=== PATIENT | female | born 1990 | race Caucasian/White ===

== ENCOUNTER 2018-08-31 03:39 | Inpatient (IN) ==
[2018-08-31 05:44] LABS: Apearance,Urine CLEAR (Clear); Bilirubin,Urine Negative (Negative); Blood, Urine Negative (Negative); Glucose,Urine (UA) Negative (Negative); Ketones,Urine Negative (Negative); Nitrite,Urine Negative (Negative); Protein,Urine Negative; RBC,Urine 1 /HPF (0-4); Squamous Epithelial Cell,Urine Occasional /HPF (0-10); Urine Color Colorless (Yellow); Urine Specific Gravity 1.002 (1.001-1.035); Urine Urobilinogen < 2.0 EU/DL (0.2-1.0); WBC,Urine <1 /HPF (0-6)
[2018-08-31 05:57] LABS: Basophils % 0.4 % (0.0-0.8); Eosinophils # 0.1 10*3/uL (0.0-0.87); Eosinophils % 1.3 % (0.00-10.9); Hematocrit 44.5 VOL% (35.7-47.0); Hemoglobin 14.7 GM/DL (12.0-16.0); Immature Granulocytes % 0.1 %; Immature Granulocytes Absolute 0.01 #; Lymphocytes # 2.4 10*3/uL (1.4-4.0); Mean Corpuscular Hemoglobin 29 PG (27-34); Mean Corpuscular Volume 87.9 FL (87-102); Mean Platelet Volume 10.2 FL (9.6-12.0); Monocytes # 0.5 10*3/uL (0.11-0.8); Monocytes % 6.8 % (1.7-12.7); Neutrophils # 4.1 10*3/uL (1.4-7.4); Neutrophils % 57.4 % (38.7-73.9); Platelet Count 259 T/CUMM (130-400); Red Blood Count 5.06 MC/CUMM (3.8-5.5); Red Cell Distribution Width 12.7 % (9.3-17.3); White Blood Count 7.1 T/CUMM (4-12)
[2018-08-31 06:15] LABS: Bilirubin,Total 0.4 MG/DL (0.2-1.0); Calcium 9.3 MG/DL (8.5-10.1); Osmolality,Calculated 270.8 MOS/KG (273-304); Potassium 3.8 MMOL/L (3.5-5.1); Total Protein 8.3 G/DL (6.4-8.3)
[2018-08-31 06:21] LABS: Hypochromasia 1+; Platelet Estimate Adequate
[2018-08-31] MEDS ORDERED: ONDANSETRON 4 MG/2 ML VIAL IV STA ×2 (06:29→11:04)
[2018-08-31] MEDS ORDERED: HYDROmorphone 2 MG/1 ML VIAL IV STA (11:04)
[2018-08-31] MEDS ORDERED: MORPHINE 4 MG/1 ML VIAL IV PRN (12:03)
[2018-08-31] MEDS ORDERED: ACETAMINOPHEN 325 MG TABLET PO PRN (12:03)
[2018-08-31] MEDS: DEXTROSE 5% LACTATED RINGERS 1,000 ML IV SCH ×2 (13:15→23:22)
[2018-08-31] MEDS ORDERED: INFLUENZA VIRUS VACCINE 0.5 ML SYRINGE IM ONE (13:31)
[2018-08-31] MEDS: ONDANSETRON 4 MG/2 ML VIAL IV PRN (23:23)
[2018-09-01] MEDS: DEXTROSE 5% LACTATED RINGERS 1,000 ML IV SCH ×2 (08:15→09:04)
[2018-09-01] MEDS: PANTOPRAZOLE 40 MG TABLET PO SCH (09:00)
[2018-09-01] MEDS ORDERED: ONDANSETRON 4 MG/2 ML VIAL ONE (10:00)
[2018-09-01] MEDS ORDERED: LIDOCAINE 2% 5 ML VIAL ONE (10:00)
[2018-09-01] MEDS ORDERED: PROPOFOL 200 MG/20 ML VIAL IV ONE (10:00)
[2018-09-01] MEDS ORDERED: DEXTROSE 5% LACTATED RINGERS 1,000 ML IV SCH (16:00)
[2018-09-01] MEDS ORDERED: NORETHINDRONE 0.35 MG PO SCH (16:00)
[2018-09-02] MEDS ORDERED: cefOXitin 2,000 MG in SYRINGE 1 EACH IV ONE (06:00)
[2018-09-02] MEDS: ONDANSETRON 4 MG/2 ML VIAL IV PRN (07:54)
[2018-09-02] MEDS: PANTOPRAZOLE 40 MG TABLET PO SCH (09:04)
[2018-09-02] MEDS ORDERED: SCOPOLAMINE 1.5 MG PATCH TRANSDERM ONE ×2 (10:10)
[2018-09-02] MEDS ORDERED: LIDOCAINE 1%/EPI INJ 20 ML VIAL ONE (10:40)
[2018-09-02] MEDS ORDERED: TISSUE ADHESIVE 1 EACH APPLICATOR TOP ONE (10:40)
[2018-09-02] MEDS ORDERED: PROPOFOL 200 MG/20 ML VIAL IV ONE (12:45)
[2018-09-02] MEDS ORDERED: SEVOFLURANE 1 UNIT/15 MINUTE INH ONE (12:46)
[2018-09-02] MEDS ORDERED: MIDAZOLAM 2 MG/2 ML VIAL ONE (12:46)
[2018-09-02] MEDS ORDERED: HYDROmorphone 2 MG/1 ML VIAL IV PRN (12:46)
[2018-09-02] MEDS ORDERED: fentaNYL 100 MCG/2 ML VIAL ONE (12:46)
[2018-09-02] MEDS ORDERED: ONDANSETRON 4 MG/2 ML VIAL IV PRN (12:46)
[2018-09-02] MEDS ORDERED: KETOROLAC 30 MG/1 ML VIAL ONE (12:47)
[2018-09-02] MEDS ORDERED: NEOSTIGMINE 10 MG/10 ML VIAL ONE (12:47)
[2018-09-02] MEDS ORDERED: DEXAMETHASONE 10 MG/1 ML VIAL ONE (12:47)
[2018-09-02] MEDS ORDERED: ONDANSETRON 4 MG/2 ML VIAL ONE ×2 (12:47→13:05)
[2018-09-02] MEDS ORDERED: PHENYLEPHRINE 1 MG/10 ML SYRINGE IV ONE (12:47)
[2018-09-02] MEDS ORDERED: GLYCOPYRROLATE 0.4 MG/2 ML VIAL ONE (12:47)
[2018-09-02] MEDS ORDERED: ePHEDrine 50 MG/ML AMP ONE (12:47)
[2018-09-02] MEDS ORDERED: ROCURONIUM 100 MG/10 ML VIAL IV ONE (12:47)
[2018-09-02] MEDS ORDERED: LACTATED RINGERS 1,000 ML IV ONE (12:48)
[2018-09-02] MEDS ORDERED: HYDROmorphone 2 MG/1 ML VIAL ONE (13:09)
[2018-09-02 17:47] VITALS: BP 125/76
== END 2018-09-02 17:57 | disposition home or self-care (01) | DRG 419 ==
LOC: N.ED 03:39 → N.EDINP 12:03 → N.3E 12:55
PROVIDERS: ADMIT Surgery; ATTEND Surgery
PROC: LAPCHOL (2018-09-02 11:15)

== ENCOUNTER 2022-09-17 05:57 | Inpatient (IN) ==
[2022-09-17] MEDS ORDERED: OXYTOCIN/LR 20 UNIT/1,000 ML BAG IV ONE ×2 (06:06→19:51)
[2022-09-17] MEDS ORDERED: miSOPROStoL 200 MCG TABLET RECTAL PRN (06:06)
[2022-09-17] MEDS ORDERED: CARBOPROST TROMETHAMINE 250 MCG/ML AMP IM PRN (06:06)
[2022-09-17] MEDS ORDERED: METHYLERGONOVINE 0.2 MG/1 ML AMP IM PRN (06:06)
[2022-09-17] MEDS ORDERED: BUTORPHANOL 2 MG/ML VIAL IV PRN (06:06)
[2022-09-17] MEDS ORDERED: MEPERIDINE 50 MG/1 ML VIAL IV PRN (06:06)
[2022-09-17] MEDS ORDERED: ONDANSETRON 4 MG/2 ML VIAL IV PRN ×2 (06:06→19:51)
[2022-09-17] MEDS ORDERED: TRANEXAMIC ACID 1,000 MG in SODIUM CHLORIDE 0.9% 100 ML IV PRN (06:06)
[2022-09-17] MEDS: LACTATED RINGERS 1,000 ML IV SCH ×2 (06:27→11:39)
[2022-09-17] MEDS ORDERED: OXYTOCIN/LR 20 UNIT/1,000 ML BAG IV SCH (06:30)
[2022-09-17 06:35] LABS: Basophils # 0.1 10*3/uL (0.0-0.2); Basophils % 0.4 % (0.0-0.8); Eosinophils # 0.2 10*3/uL (0.0-0.87); Eosinophils % 1.7 % (0.00-10.9); Hematocrit 31.5 VOL% (35.7-47.0); Hemoglobin 10.3 GM/DL (12.0-16.0); Immature Granulocytes % 0.5 %; Immature Granulocytes Absolute 0.06 #; Lymphocytes # 2.9 10*3/uL (1.4-4.0); Lymphocytes % 23.6 % (21.3-54.2); Mean Corpuscular HGB Conc 32.7 GM/DL (32-36); Mean Corpuscular Volume 84.5 FL (87-102); Mean Platelet Volume 9.6 FL (9.6-12.0); Monocytes % 8.4 % (1.7-12.7); Neutrophils % 65.4 % (38.7-73.9); Platelet Count 317 T/CUMM (130-400); Red Blood Count 3.73 MC/CUMM (3.8-5.5); Red Cell Distribution Width 13.6 % (9.3-17.3); White Blood Count 12.3 T/CUMM (4-12)
[2022-09-17] MEDS ORDERED: INFLUENZA VIRUS VACCINE 0.5 ML SYRINGE IM ONE (06:50)
[2022-09-17] MEDS ORDERED: ePHEDrine 50 MG/ML VIAL IV PRN (07:54)
[2022-09-17] MEDS ORDERED: LACTATED RINGERS 1,000 ML IV ONE (07:54)
[2022-09-17] MEDS ORDERED: NALOXONE 0.4 MG/ML VIAL IV PRN (07:54)
[2022-09-17] MEDS ORDERED: FAMOTIDINE 20 MG/2 ML VIAL IV ONE (07:54)
[2022-09-17] MEDS ORDERED: PROMETHAZINE 25 MG/1 ML VIAL IM ONE (07:54)
[2022-09-17] MEDS ORDERED: diphenhydrAMINE 50 MG/1 ML VIAL IV PRN ×2 (07:54)
[2022-09-17] MEDS ORDERED: CITRIC ACID/SODIUM CITRATE 30 ML UDCUP PO ONE (07:54)
[2022-09-17] MEDS ORDERED: hydrOXYzine HCL 25 MG/1 ML VIAL IM PRN (07:54)
[2022-09-17] MEDS ORDERED: fentaNYL 2 MCG/ROPIV 0.2% EPID 100 ML EPIDURAL SCH (08:00)
[2022-09-17 13:06] LABS: Bacteria,Urine Occasional /HPF (Few)
[2022-09-17 13:08] LABS: Bilirubin,Urine Negative (Negative); Blood, Urine Negative (Negative); Glucose,Urine (UA) Negative (Negative); Ketones,Urine >160 mg/dL (Negative); Nitrite,Urine Negative (Negative); Protein,Urine Negative (Negative); Urine Appearance Clear (Clear); Urine Color Yellow (Yellow); Urine Specific Gravity 1.015 (1.001-1.035); Urine Urobilinogen 0.2 eU/dL (<2.0)
[2022-09-17] MEDS ORDERED: miSOPROStoL 200 MCG TABLET ONE (14:32)
[2022-09-17] MEDS ORDERED: METHYLERGONOVINE 0.2 MG/1 ML AMP ONE (14:33)
[2022-09-17] MEDS ORDERED: CARBOPROST TROMETHAMINE 250 MCG/ML AMP IM ONE (14:33)
[2022-09-17 15:35] LABS: Cord Venous Blood HCO3 22.5 MMOL/L; Cord Venous Blood PCO2 37.9 MMHG; Cord Venous Blood PO2 36.1
[2022-09-17] MEDS ORDERED: DIPH/TET/ACEL PERT BOOSTER VACCINE 0.5 ML VIAL IM ONE (19:51)
[2022-09-17] MEDS ORDERED: oxyCODONE/ACETAMINOPHEN 5-325 MG TABLET PO PRN ×2 (19:51)
[2022-09-17] MEDS ORDERED: BISACODYL 10 MG SUPP RECTAL PRN (19:51)
[2022-09-17] MEDS ORDERED: WITCH HAZEL PADS 100/JAR TOP PRN (19:51)
[2022-09-17] MEDS ORDERED: MEASLES/MUMPS/RUBELLA VACCINE 0.5 ML VIAL SUBCUT ONE (19:51)
[2022-09-17] MEDS ORDERED: RHO(D) IMMUNE GLOBULIN 300 MCG SYRINGE IM ONE (19:51)
[2022-09-17] MEDS ORDERED: LANOLIN 50% CREAM 0.3 OZ TUBE TOP PRN (19:51)
[2022-09-17] MEDS ORDERED: ACETAMINOPHEN 325 MG TABLET PO PRN (19:51)
[2022-09-17] MEDS ORDERED: HYDROCORTISONE 2.5% RECTAL CREAM 30 GM TUBE TOP PRN (19:51)
[2022-09-17] MEDS ORDERED: BENZOCAINE 20%/MENTHOL 0.5% SPRAY 56 GM CAN TOP PRN (19:51)
[2022-09-17] MEDS: DOCUSATE SODIUM 100 MG CAPSULE PO SCH (21:10)
[2022-09-18 05:57] LABS: Basophils # 0.1 10*3/uL (0.0-0.2); Basophils % 0.4 % (0.0-0.8); Eosinophils # 0.3 10*3/uL (0.0-0.87); Eosinophils % 2.5 % (0.00-10.9); Hematocrit 31.1 VOL% (35.7-47.0); Hemoglobin 9.9 GM/DL (12.0-16.0); Immature Granulocytes % 0.7 %; Lymphocytes # 3.8 10*3/uL (1.4-4.0); Lymphocytes % 27.2 % (21.3-54.2); Mean Corpuscular HGB Conc 31.8 GM/DL (32-36); Mean Corpuscular Volume 85.9 FL (87-102); Mean Platelet Volume 9.7 FL (9.6-12.0); Monocytes # 1.4 10*3/uL (0.11-0.8); Monocytes % 10.4 % (1.7-12.7); Neutrophils % 58.8 % (38.7-73.9); Platelet Count 278 T/CUMM (130-400); Red Blood Count 3.62 MC/CUMM (3.8-5.5); Red Cell Distribution Width 13.8 % (9.3-17.3); White Blood Count 13.8 T/CUMM (4-12)
[2022-09-18] MEDS: DOCUSATE SODIUM 100 MG CAPSULE PO SCH ×2 (08:09→21:50)
[2022-09-18] MEDS: IBUPROFEN 800 MG TABLET PO PRN ×2 (08:10→16:31)
[2022-09-19 07:36] VITALS: BP 111/74
[2022-09-19] MEDS: DOCUSATE SODIUM 100 MG CAPSULE PO SCH (08:20)
[2022-09-19] MEDS ORDERED: DIPH/TET/ACEL PERT BOOSTER VACCINE 0.5 ML VIAL IM ONE (11:06)
== END 2022-09-19 12:45 | disposition home or self-care (01) | DRG 560 ==
LOC: N.LD 05:57 → N.OB 17:10
PROVIDERS: ADMIT Specialist; ATTEND Specialist